=== PATIENT | female | born 1990 | race Caucasian/White ===

== ENCOUNTER 2023-11-05 14:57 | Emergency (ER) | payer OTHER ==
[~2023-11-05] VITALS: Ht 170.2 cm; Wt 162.3 kg
--- OUTSIDE RECORDS SUMMARY | 2023-11-05 15:06 | XMS ---
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 - 2 Visits in 30 Days CARE PROVIDERS -, [facility] Dentist: Forming Department End Finder [facility] PHONE: [phone] - [place]- Dentist: Forming Department End Finder [facility] PHONE: [phone] CENTER, TOM Clinic/Center: [facility] ([facility]) PHONE: [phone] [place] has no Care Guidelines for this patient. E.D. VISIT COUNT (12 MO.) [address] Erika Watkins (Marquise [place]) 1 BRITTANY Gordon TOTAL 9 NOTE: Visits indicate total known visits. ED/UCC VISIT TRACKING (12 MO.) 11/05/2023 14:59 [facility] T[facility]q [place] TYPE: Emergency COMPLAINT: - RIGHT LEG PAIN/SWELLING 11/04/2023 06:03 [facility] [place] ([place]quise [place]) TYPE: Emergency DIAGNOSES: - Cellulitis of right lower limb - Pain in right lower leg - Leg Pain (Non-traumatic) - rt leg inf 10/21/2023 14:01 [facility] [place] ([place]) TYPE: Emergency DIAGNOSES: - Puncture wound without foreign body, right foot, initial encounter - Foot Wound - rt foot puncture wound 09/27/2023 22:19 [facility] [place] (Marquise Cam[place]) TYPE: Emergency DIAGNOSES: - Urinary tract infection, site not specified - poss UTI - Urinary Complaint 08/02/2023 21:51 [facility] [place] ([place] TYPE: Emergency DIAGNOSES: - Atopic dermatitis, unspecified - rash 06/01/2023 01:08 [facility] [place] ([place]ise [place]) TYPE: Emergency DIAGNOSES: - Laceration without foreign body of right index finger without damage to nail, initial encounter - Hand Laceration - right hand 12/21/2022 20:13 [facility] [place] ([place]ise [place]) TYPE: Emergency DIAGNOSES: - Cellulitis of right lower limb - Other specified health status - Cellulitis - Rt leg pain 12/16/2022 15:00 [facility] [place] ([place]) TYPE: Emergency DIAGNOSES: - Cellulitis of right lower limb - Leg Pain (Non-traumatic) - Leg Swelling - Rt leg pain, swelling - Wound Infection (Uncomplicated) 12/14/2022 22:54 [facility] [place]) TYPE: Emergency DIAGNOSES: - Cellulitis of right lower limb - chills fever poss cellulitis in rt leg - Fever (9 Weeks To 74 Years) - Leg Pain INPATIENT VISIT TRACKING (12 MO.) No inpatient visits to display in this time frame [email or web address]
[2023-11-05] MEDS ORDERED: CEFDINIR300 MG PO (15:32)
[2023-11-05] MEDS ORDERED: SODIUM CHLORIDE 0.9% 1,000 ML IV ONE (16:00)
[2023-11-05] MEDS ORDERED: DAPTOmycin 500 MG/10 ML VIAL IV ONE ×2 (16:00→16:30)
[2023-11-05] MEDS ORDERED: CEFTRIAXONE/SODIUM CHLORIDE 2 GM/100 ML PIGGYBACK IV ONE (16:00)
[2023-11-05 16:15] LABS: BILIRUBIN, URINE NEGATIVE (negative); BLOOD/HGB, URINE TRACE-L (Negative); KETONE, URINE TRACE (Negative); LEUK ESTERASE, URINE NEGATIVE (negative); NITRITE, URINE NEGATIVE (negative)
[2023-11-05] MEDS ORDERED: ACETAMINOPHEN 500 MG TAB PO ONE (16:15)
[2023-11-05 16:29] LABS: BACTERIA, URINE RARE /hpf (negative); CASTS, URINE NONE SEEN \\lpf; COLLECTION TYPE, URINE CLEAN CATCH; CRYSTALS, URINE NONE SEEN (0-1+); EPITHELIAL CELLS, URINE SQUAMOUS 1+ /lpf (0-1+); REFLEX CULTURE, URINE No (No)
[2023-11-05 16:56] LABS: BASOPHILS 0.3 % (0-2); EOSINOPHILS 0.1 % (0-6); HEMATOCRIT 35.4 % (35.0-50.0); HEMOGLOBIN 11.5 g/dL (12.0-18.0); LYMPHOCYTES 10.9 % (24-44); MCH 25.8 (27-36); MCHC 32.4 g/dl (30-36); MCV 79.6 fl (81-99); MONOCYTES 3.7 % (0-12); PLATELET COUNT 260 K/uL (140-440); RBC 4.45 M/ul (4.3-5.7); RDW 15.7 (10.5-15.0)
[2023-11-05 17:14] LABS: ALBUMIN 2.7 g/dL (3.4-5.0); ALBUMIN/GLOBULIN RATIO 0.59 (1.1-2.4); ANION GAP 12.7 (7-21); BILIRUBIN, TOTAL 0.5 ng/dL (0.2-1.0); BUN/CREATININE RATIO 10.2 (6.0-28.6); CALCIUM 8.2 mg/dL (8.5-10.1); CREATININE, SERUM 0.98 mg/dL (0.55-1.02); POTASSIUM 3.7 mmol/L (3.5-5.1); PROTEIN, TOTAL 7.3 g/dL (6.4-8.2)
[2023-11-05 17:17] LABS: LACTIC ACID, BLOOD 1.1 mmol/L (0.4-2.0)
[2023-11-05 19:00] VITALS: BP 155/96
[2023-11-06] MEDS ORDERED: ONDANSETRON ODT8 MG PO (16:37)
== END 2023-11-05 19:00 | disposition home or self-care (01) ==
LOC: ED 14:57
PROVIDERS: Emergency Medicine
DX: L03.115 Cellulitis of right lower limb (principal); F43.10 Post-traumatic stress disorder, unspecified; Z88.0 Allergy status to penicillin
CPT/HCPCS: 36415; 80053; 81001; 83605; 85025; 87040; 96374; 96375; 99283-25; A9270; J0696; J0878; J7030

== ENCOUNTER 2023-11-06 14:16 | Emergency (ER) | payer OTHER ==
[~2023-11-06] VITALS: Ht 170.2 cm; Wt 164.6 kg
[~2023-11-06 14:16] MED LIST: CEFDINIR300 MG PO
[2023-11-06] MEDS ORDERED: SODIUM CHLORIDE 0.9% 1,000 ML IV PRN (14:30)
[2023-11-06] MEDS ORDERED: KETOROLAC TROMETHAMINE 15 MG/ML VIAL IV ONE (14:45)
[2023-11-06 14:56] LABS: PH, VENOUS 7.525 (7.31-7.41)
[2023-11-06] MEDS ORDERED: ondansetron HCL 4 MG/2 ML VIAL IV ONE (15:00)
[2023-11-06 15:02] LABS: BASOPHILS 0.3 % (0-2); EOSINOPHILS 0.3 % (0-6); HEMATOCRIT 34.8 % (35.0-50.0); HEMOGLOBIN 11.1 g/dL (12.0-18.0); LYMPHOCYTES 16.7 % (24-44); MCH 25.8 (27-36); MCHC 31.9 g/dl (30-36); MCV 80.9 fl (81-99); MONOCYTES 6.5 % (0-12); NEUTROPHILS 76.2 % (39-80); PLATELET COUNT 195 K/uL (140-440); RBC 4.31 M/ul (4.3-5.7)
[2023-11-06 15:17] LABS: LACTIC ACID, BLOOD 1.4 mmol/L (0.4-2.0)
[2023-11-06] MEDS ORDERED: DAPTOmycin 500 MG/10 ML VIAL IV ONE (15:45)
[2023-11-06] MEDS ORDERED: hydrOXYzine pamoate 50 MG CAP PO ONE (15:45)
[2023-11-06 16:00] LABS: ALBUMIN 2.3 g/dL (3.4-5.0); ALBUMIN/GLOBULIN RATIO 0.53 (1.1-2.4); ANION GAP 13.4 (7-21); BILIRUBIN, TOTAL 0.3 ng/dL (0.2-1.0); BUN/CREATININE RATIO 12.67 (6.0-28.6); CALCIUM 8.1 mg/dL (8.5-10.1); CREATININE, SERUM 0.71 mg/dL (0.55-1.02); POTASSIUM 3.4 mmol/L (3.5-5.1); PROTEIN, TOTAL 6.6 g/dL (6.4-8.2)
[2023-11-06] MEDS ORDERED: CEFTRIAXONE/SODIUM CHLORIDE 2 GM/100 ML PIGGYBACK IV ONE (16:00)
[2023-11-06] MEDS ORDERED: ONDANSETRON ODT8 MG PO (16:37)
[2023-11-06 16:45] VITALS: BP 130/73
--- NOTE | 2023-11-08 09:42 | EKG ---
[facility] [address] [place], [place] [address] Signed Sinus tachycardia Otherwise normal ECG No previous ECGs available Confirmed by AMINATA SAAB MD ([id number]) on 11/08/2023 9:41:48 AM Electronically Signed By: AMINATA SAAB 11/08/23 0942 PATIENT NAME: SUNSHINE MARRUFO Electrocardiogram DATE OF : 89 PHYSICIAN: AMINATA SAAB REPORT #: [id number] REPORT IS CONFIDENTIAL AND NOT TO BE RELEASED WITHOUT AUTHORIZATION
== END 2023-11-06 16:45 | disposition home or self-care (01) ==
LOC: ED 14:16
PROVIDERS: Emergency Medicine
DX: L03.115 Cellulitis of right lower limb (principal); Z88.0 Allergy status to penicillin
CPT/HCPCS: 36415; 71045; 71260; 80053; 82553; 82803; 83605; 84703; 85025; 93005; 93010; 99284-25; J0696; J0878; J1885; J2405; Q9967